=== PATIENT | female | born 1960 | race Caucasian/White ===

== ENCOUNTER 2017-08-23 13:49 | Emergency (ER) | payer BC, OTHER | END 2017-08-23 15:13 | disposition home or self-care (01) | LOC: E/R 13:49 | DX: S99.912A Unspecified injury of left ankle, initial encounter (principal); X58.XXXA Exposure to other specified factors, initial encounter; Y92.9 Unspecified place or not applicable | CPT/HCPCS: 73610; 99283-25 ==